=== PATIENT | female | born 1990 | race Hispanic/Latino ===

== ENCOUNTER 2022-12-16 11:12 | Emergency (ER) | payer SELFPAY ==
[~2022-12-16] VITALS: Ht 154.9 cm; Wt 71.4 kg
[2022-12-16] MEDS ORDERED: ONDANSETRON HCL INJ 2MG/ML 2ML 2 MG/ML VIAL IV STA (11:55)
[2022-12-16] MEDS ORDERED: FAMOTIDINE 20 MG/2 ML VIAL IV STA (11:55)
[2022-12-16] MEDS ORDERED: SODIUM CHLORIDE 0.9% 1000ML 1,000 ML IV ONE (12:00)
[2022-12-16] MEDS ORDERED: SODIUM CHLORIDE 0.9% 1000ML 1,000 ML ONE (12:29)
[2022-12-16] MEDS ORDERED: ONDANSETRON ODT4 MG PO (13:00)
[2022-12-16] MEDS ORDERED: PEPCID20 MG PO (13:01)
== END 2022-12-16 13:23 | disposition home or self-care (01) ==
LOC: FSED 11:50
DX: R11.2 Nausea with vomiting, unspecified (principal); F12.90 Cannabis use, unspecified, uncomplicated
CPT/HCPCS: 80048; 81003; 81025; 85025; 96374; 96375; 99284; J2405; J7030